=== PATIENT | female | born 1960 | race Two or more races ===

== ENCOUNTER 2020-12-25 23:12 | Emergency (ER) | payer SELFPAY ==
--- NOTE | 2020-12-26 00:32 | EDM.PDOC ---
ED HPI GENERAL MEDICAL PROBLEM - General Chief Complaint: Neck Problem Stated Complaint: LEFT NECK PAIN Time Seen by Provider: 12/26/20 00:07 Source of Information: Reports: Patient, Family, RN Notes Reviewed History Limitations: Reports: No Limitations - History of Present Illness INITIAL COMMENTS - FREE TEXT/NARRATIVE: 60-year-old female presents emergency department day complaint of neck pain, she states the pain is primarily in the left side of her neck is been ongoing for a week it will radiate down into her left arm seems to be worse when she lays on her back in certain positions. Exertion makes no difference there is no nausea or vomiting no shortness of breath no chest pain. She does do a lot of computer work at home but limits it here while at the [employer]. - Related Data Allergies Allergy/AdvReac Type Severity Reaction Status Date / Time No Known Allergies Allergy Verified 12/25/20 23:41 Home Meds: Home Meds NK [No Known Home Meds] 12/25/20 [History] Past Medical History HEENT History: Reports: Impaired Vision, Other (See Below) Other HEENT History: glasses [employer] History: Reports: , Spontaneous Endocrine/Metabolic History: Reports: Diabetes, Gestational - Infectious Disease History Infectious Disease History: Reports: Chicken Pox - Past Surgical History HEENT Surgical History: Reports: LASIK Female Surgical History: Reports: D&C Social & Family History - Tobacco Use Tobacco Use Status *Q: Never Tobacco User - Recreational Drug Use Recreational Drug Use: No ED ROS GENERAL - Review of Systems Review Of Systems: See Below Constitutional: Reports: No Symptoms HEENT: Reports: No Symptoms Respiratory: Reports: No Symptoms Cardiovascular: Reports: No Symptoms GI/Abdominal: Reports: No Symptoms Musculoskeletal: Reports: Neck Pain ED EXAM, UPPER BACK/NECK PAIN - Physical Exam Exam: See Below Exam Limited By: No Limitations General Appearance: Alert, WD/WN, No Apparent Distress Neck Exam: Non-Tender, Full Range of Motion, Normal Alignment, Normal Inspection Nexus Criteria: Posterior, Midline Cervical Tenderness, Evidence of Intoxication, Altered Level of Consciousness, Focal Neurological Deficit, Painful Distraction Injuries Cardiovascular/Respiratory: Regular Rate, Rhythm, No M/R/G, No Respiratory Distress Course - Vital Signs Last Recorded V/S: Last Vital Signs Temp 95.7 F L 12/25/20 23:42 Pulse 71 12/25/20 23:42 Resp 17 12/25/20 23:42 BP 139/72 12/25/20 23:42 Pulse Ox 100 12/25/20 23:42 Departure - Departure Time of Disposition: 00:31 Disposition: Home, Self-Care 01 Condition: Fair Clinical Impression: Neck pain - Discharge Information Referrals: PCP,None [Primary Care Provider] - Additional Instructions: Try the ketorolac for the next couple days for pain control take it scheduled, use the Flexeril as needed for muscle spasm, try some massage therapy, please follow-up with your primary care upon return home consider physical therapy and further evaluation call return to the emergency department worsening of symptoms Sepsis Event Note (ED) - Evaluation Sepsis Screening Result: No Definite Risk - Focused Exam Vital Signs: Vital Signs Temp Pulse Resp BP Pulse Ox 12/25/20 23:42 95.7 F L 71 17 139/72 100 12/25/20 23:34 95.7 F L 71 17 139/72 100 - Assessment/Plan Plan: Assessment Acuity = acute Site and laterality = neck pain left side Etiology = probable repetitive motion injury Manifestations = none Location of injury = Home Lab values = none Plan Try the ketorolac for pain control try the Flexeril as needed for muscle relaxant, massage therapy physical therapy could be useful follow-up with primary care for further evaluation This note was dictated using [employer] voice recognition software please call with any questions on syntax or grammar.
== END 2020-12-26 00:43 | disposition home or self-care (01) ==
LOC: JP.ED 23:12
DX: M54.2 Cervicalgia (principal)
CPT/HCPCS: 99283

== ENCOUNTER 2023-11-15 11:10 | Emergency (ER) | payer OTHER | END 2023-11-15 13:40 | disposition home or self-care (01) | LOC: JP.ED 11:10 | DX: L03.031 Cellulitis of right toe (principal) | CPT/HCPCS: 73660-26-T7; 73660-T7; 99283 ==